=== PATIENT | male | born 2000 | race Two or more races ===

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

== ENCOUNTER 2022-01-01 19:05 | Inpatient (IN) | payer MEDICAID ==
[~2022-01-01] VITALS: Ht 170.2 cm; Wt 117.0 kg
[2022-01-02] MEDS ORDERED: MORPHINE SULFATE INJ 2 MG/ml SYRG IV PRN (05:30)
[2022-01-02] MEDS ORDERED: ACETAMINOPHEN 325 MG TAB PO PRN (05:30)
[2022-01-02] MEDS ORDERED: ONDANSETRON HCL 4 MG/2 ML VIAL IV PRN (05:30)
[2022-01-02 07:09] LABS: Basophils # (auto) 0 10 ^3/uL (0-0.2); Basophils % (auto) 0.3 % (0.0-2.0); Eosinophils # (auto) 0.1 10 ^3/uL (0-0.8); Eosinophils % (auto) 1.2 % (0.0-7.0); Hematocrit 41.1 % (41.0-53.0); Hemoglobin 13.4 g/dL (13.5-17.5); Lymphocytes # (auto) 2.6 10 ^3/uL (0.4-5.4); Lymphocytes % (auto) 32.6 % (10.0-50.0); Mean Corpuscular Hemoglobin 30.5 pg (28.0-32.0); Mean Corpuscular Hgb Conc. 32.6 g/dL (32.0-36.0); Mean Corpuscular Volume 93.8 fL (80.0-100.0); Monocytes # (auto) 0.5 10 ^3/uL (0-1.3); Monocytes % (auto) 6.3 % (0.0-12.0); Neutrophils # (auto) 4.8 10 ^3/uL (1.6-8.6); Neutrophils % (auto) 59.6 % (37.0-80.0); Red Blood Cells 4.38 10^6/uL (4.5-5.90); Red Cell Distribution Width 13.8 % (11.8-14.3); White Blood Cell 8.1 10^3/uL (4.4-10.8)
[2022-01-02 07:20] LABS: Albumin 3.8 g/dL (3.4-5.0); Anion Gap 12 (5-15); Blood Urea Nitrogen 13 mg/dL (7-18); Calcium 8.6 mg/dL (8.5-10.1); Carbon Dioxide 23 mmol/L (21-32); Chloride 110 mmol/L (98-107); Glucose 82 mg/dL (74-106); Sodium 145 mmol/L (136-145)
[2022-01-02 07:22] LABS: Alanine Aminotransferase 22 U/L (16-61); Aspartate Aminotransferase 21 U/L (15-37); BUN/Creatinine Ratio 18.6; GFR African American 187 mL/min; GFR Non-African American 154 mL/min
[2022-01-02 07:24] LABS: Alkaline Phosphatase 64 U/L (45-117); Total Protein 7.4 g/dL (6.4-8.2)
[2022-01-02 07:25] LABS: INR 1.03 (0.9-1.15); Partial Thromboplastin Time 23.9 sec (24.6-33.4)
[2022-01-02] MEDS: QUEtiapine FUMARATE 100 MG TAB PO SCH ×2 (10:02→21:45)
[2022-01-02] MEDS: PANTOPRAZOLE 40 MG TAB PO SCH (10:02)
[2022-01-02 21:39] VITALS: BP 126/78
[2022-01-02] MEDS: traZODone HCL 50 MG TAB PO SCH (21:45)
[2022-01-02] MEDS ORDERED: TRAZ300T16 PO (22:13)
[2022-01-02] MEDS ORDERED: QUET100T47 PO (22:13)
[2022-01-02] MEDS ORDERED: CLON0.5T10 PO (22:16)
[2022-01-02] MEDS ORDERED: OXCA600T3 PO (22:16)
[2022-01-03 05:00] VITALS: BP 132/76
[2022-01-03 06:29] LABS: Hemoglobin 13.3 g/dL (13.5-17.5); Mean Corpuscular Hemoglobin 31.8 pg (28.0-32.0); Mean Corpuscular Hgb Conc. 34.2 g/dL (32.0-36.0); Red Blood Cells 4.19 10^6/uL (4.5-5.90); Red Cell Distribution Width 13.5 % (11.8-14.3); White Blood Cell 8.2 10^3/uL (4.4-10.8)
[2022-01-03 06:33] LABS: Band Neutrophils % (manual) 0; Basophils % (manual) 0 (0.0-2.0); Blast Cells 0; Metamyelocytes % 0; Myelocytes % 0; Promyelocytes % 0; Reactive Lymphocytes 0
[2022-01-03 07:36] LABS: BUN/Creatinine Ratio 15.8; Calcium 8.8 mg/dL (8.5-10.1); Potassium 3.8 mmol/L (3.5-5.1)
[2022-01-03 09:00] VITALS: BP 124/77
[2022-01-03] MEDS: QUEtiapine FUMARATE 100 MG TAB PO SCH ×2 (10:48→21:29)
[2022-01-03] MEDS: PANTOPRAZOLE 40 MG TAB PO SCH (10:48)
[2022-01-03 13:00] VITALS: BP 127/74
[2022-01-03] MEDS: HYDROcodone-ACET 5/325MG TAB PO PRN (20:26)
[2022-01-03] MEDS: traZODone HCL 50 MG TAB PO SCH (21:29)
[2022-01-03 21:52] VITALS: BP 138/82
[2022-01-04 05:00] VITALS: BP 120/70
[2022-01-04 09:00] VITALS: BP 127/76
[2022-01-04] MEDS: QUEtiapine FUMARATE 100 MG TAB PO SCH (09:17)
[2022-01-04] MEDS: HYDROcodone-ACET 5/325MG TAB PO PRN (09:17)
[2022-01-04] MEDS: PANTOPRAZOLE 40 MG TAB PO SCH (09:17)
[2022-01-04] MEDS ORDERED: HYDR-4902 PO (10:56)
[2022-01-04 12:45] VITALS: BP 120/71
[2022-01-04 15:06] VITALS: BP 126/70
[2022-01-04 17:00] VITALS: BP 125/73
== END 2022-01-04 19:00 | disposition home or self-care (01) | DRG 342 ==
LOC: ER 19:09 → OVERFLOW 01-02 05:27 → WEST WING 01-02 21:13
PROVIDERS: ADMIT Nurse Practitioner; ATTEND Nurse Practitioner Acute Care
DX: S42.491A Other displaced fracture of lower end of right humerus, initial encounter for closed fracture (principal); E66.01 Morbid (severe) obesity due to excess calories; F84.0 Autistic disorder; Z20.822 Contact with and (suspected) exposure to COVID-19; W18.39XA Other fall on same level, initial encounter; Y93.89 Activity, other specified; Y92.89 Other specified places as the place of occurrence of the external cause; Y99.8 Other external cause status
CPT/HCPCS: 36415; 73060; 80048; 80053; 85007; 85025; 85027; 85610; 85730; 87081; 87426; 97163; G0378

== ENCOUNTER 2022-03-24 14:13 | Emergency (ER) | payer MEDICAID ==
[~2022-03-24] VITALS: Ht 172.7 cm; Wt 128.0 kg
[~2022-03-24 14:13] MED LIST changes: +CLON0.5T10 PO; +HYDR-4902 PO; +OXCA600T3 PO; +QUET100T47 PO; -TRAZ100T3 PO; +TRAZ300T16 PO
[2022-03-24 14:15] VITALS: BP 134/85
== END 2022-03-24 14:57 | disposition left against medical advice (07) ==
LOC: ER 14:13
DX: F41.9 Anxiety disorder, unspecified (principal)